=== PATIENT | female | born 1950 | race Hispanic/Latino ===

== ENCOUNTER 2023-03-25 06:18 | Emergency (ER) | payer OTHER ==
[~2023-03-25] VITALS: Ht 157.5 cm; Wt 51.7 kg
[2023-03-25 06:31] LABS: BASOPHILS # (AUTO) 0.03 K/uL (0.00-0.20); BASOPHILS % (AUTO) 0.3 % (0.0-5.0); EOSINOPHILS # (AUTO) 0.02 K/uL (0.00-0.70); EOSINOPHILS % (AUTO) 0.2 % (0.0-8.0); HEMATOCRIT 33.9 % (36-48); IMMATURE GRANULOCYTE ABSOLUTE 0.04 K/uL (0-1); LYMPHOCYTES # (AUTO) 1.2 K/uL (1.0-4.8); LYMPHOCYTES % (AUTO) 11.9 % (21.0-51.0); MEAN CORPUSCULAR HEMOGLOBIN 30.5 pg (27.0-33.0); MEAN CORPUSCULAR HGB CONC 34.5 g/dL (32.0-36.0); MEAN CORPUSCULAR VOLUME 88.3 fL (79-99); MONOCYTES # (AUTO) 0.5 K/uL (0.1-1.0); MONOCYTES % (AUTO) 5.4 % (3.0-13.0); NEUTROPHILS # (AUTO) 8.1 K/uL (1.8-7.7); NEUTROPHILS % (AUTO) 81.8 % (40.0-77.0); PLATELET COUNT (AUTO) 182 K/uL (130-400); RED BLOOD CELL COUNT(AUTO) 3.84 MIL/uL (4.00-5.50); RED CELL DISTRIBUTION WIDTH 12.2 % (11.0-15.5); WHITE BLOOD COUNT (AUTO) 9.9 K/uL (4.8-10.8)
[2023-03-25 06:41] LABS: INR <= 0.93 (0.85-1.15); PROTHROMBIN TIME 10.7 SEC (9.6-11.6)
[2023-03-25 06:43] LABS: PARTIAL THROMBOPLASTIN TIME 29.1 SEC (26.3-35.5)
[2023-03-25 06:48] LABS: ALBUMIN 3.8 g/dL (3.5-5.0); BILIRUBIN,TOTAL 0.3 mg/dL (0.2-1.0); CREATININE 0.6 mg/dL (0.5-1.5); POTASSIUM 3.5 mmol/L (3.5-5.1); TOTAL PROTEIN, SERUM 7.3 g/dL (6.0-8.3)
[2023-03-25 06:57] LABS: B-TYPE NATRIURETIC PEPTIDE 34 pg/mL (0-100)
[2023-03-25] MEDS ORDERED: FENTANYL 1000MCG+NS 100ML 100 ML IV SCH (07:00)
[2023-03-25] MEDS ORDERED: ETOMIDATE 20MG VIAL IVP ONE (07:00)
[2023-03-25] MEDS ORDERED: MIDAZOLAM HCL 1 MG/ML 2ML VIAL IVP PRN (07:00)
[2023-03-25] MEDS ORDERED: ROCURONIUM BROMIDE 10MG/1ML 5ML VL IV ONE (07:00)
[2023-03-25] MEDS ORDERED: MIDAZOLAM HCL 1 MG/ML 2ML VIAL IVP ONE (07:00)
[2023-03-25] MEDS ORDERED: LEVETIRACETAM 500 MG/5 ML SD VIAL IV SCH ×2 (07:00)
[2023-03-25] MEDS ORDERED: DEXAMETHASONE SOD PHOSPHATE 4 MG/ML 1ML VIAL IV ONE (07:00)
[2023-03-25] MEDS ORDERED: PHARMACY COMMUNICATION MISC SCH (07:00)
[2023-03-25] MEDS ORDERED: FENTANYL CITRATE PF 0.05 MG/ML 2,500 MCG in 0.9% NACL 250ML 200 ML IV PRN (07:00)
[2023-03-25] MEDS: DEXAMETHASONE SOD PHOSPHATE 10MG/ML 1ML VIAL ONE (07:15)
[2023-03-25] MEDS: FENTANYL 1000MCG+NS 100ML 100 ML IV ONE (07:15)
[2023-03-25] MEDS: DEXAMETHASONE SOD PHOSPHATE 4 MG/ML 1ML VIAL IV ONE (07:15)
[2023-03-25] MEDS: LEVETIRACETAM 1,000 MG in 0.9%NACL 100ML 100 ML IV ONE (07:15)
[2023-03-25] MEDS: LEVETIRACETAM 500 MG/5 ML SD VIAL IV ONE (07:15)
[2023-03-25 08:20] LABS: APPEARANCE,URINE CLEAR (CLEAR); BILIRUBIN,URINE NEGATIVE (NEGATIVE); COLOR,URINE COLORLESS (YELLOW); GLUCOSE, URINE (UA) 150 mg/dL (NEGATIVE); KETONES,URINE 5 mg/dL (NEGATIVE); LEUKOCYTE ESTERASE ,URINE NEGATIVE Leu/uL (NEGATIVE); NITRATE,URINE NEGATIVE (NEGATIVE); OCCULT BLOOD,URINE NEGATIVE (NEGATIVE); PH,URINE 5.5 (5.0-8.0); PROTEIN,URINE NEGATIVE (NEGATIVE); UROBILINOGEN,URINE 0.2 mg/dL (0.2-1.0)
[2023-03-25 08:21] LABS: ADD UA MICROSCOPIC YES
[2023-03-25 08:24] LABS: RBC,URINE 0-1 /HPF (0-1); SQUAMOUS EPITHELIAL CELL,UR RARE /HPF (0-2)
[2023-03-25 12:26] VITALS: BP 122/55; PULSE 63; RESP 18; O2SAT 99
== END 2023-03-25 13:55 | disposition short-term general hospital (02) ==
LOC: EDH 06:18
DX: G81.94 Hemiplegia, unspecified affecting left nondominant side (principal); R22.0 Localized swelling, mass and lump, head
CPT/HCPCS: 99285; 96365; 70450; 71045; 96375; 82550; 83721; 84484; 80053; 83880; 85025; 85610; 85730; 82948; 81001; 36415; 93005; J3010; J1953 ×2; J1100